=== PATIENT | male | born 1950 | race Caucasian/White ===

== ENCOUNTER 2016-08-28 12:20 | Emergency (ER) | payer MEDICARE, BC ==
[2016-08-28 13:39] VITALS: BP 138/53
--- NOTE | 2016-08-28 14:14 | UC ---
Palpitation/Dysrhythmia HP - HPI Summary HPI Summary: The patient comes in today for: 1. Sinus pressure: Onset: 4-5 days. Palliative/provocative: Sleep makes it better. Quality: Pressure Region: Frontal pressure and maxillary pressure Severity: 7/10 Time: Constant Associated symptoms: Rhinitis: Green. Upper tooth pain: None. Fever: No temperature taken. Cough: Occasionally. Green. Chest pain: None Palpitations: Present. Lightheadedness: present if he "tries too much." 2. Palpitations: Onset: He has had a-fib for 15 years. Palliative/provocative: Sinus infections. Quality: Palpitations. Region: Chest Severity: No pain. Time: Comes and goes. Associated symptoms: He is on Tikosyn and ablation, cardioversion x 35 times. * * - History of Current Complaint Chief Complaint: UCRespiratory Stated Complaint: SINUS,SORE THROAT,EAR PAIN,COUGH Time Seen by Provider: 08/28/16 14:08 Hx Obtained From: Patient - Allergy/Home Medications Allergies/Adverse Reactions: Allergies Allergy/AdvReac Type Severity Reaction Status Date / Time Clopidogrel [From Plavix] AdvReac Intermediate Hives Verified 08/28/16 13:39 Home Medications: Home Medications Metoprolol Tartrate TAB* [Lopressor TAB*] 75 mg PO DAILY 08/28/16 [History Confirmed 08/28/16] PMH/Surg Hx/FS Hx/Imm Hx Previously Healthy: No Endocrine History Of: Reports: Diabetes - x 20 years. Cardiovascular History Of: Reports: Cardiac Disorders - Afib, Hypertension, Congestive Heart Failure - He is on spironolactone--for CHF? He denies CHF per se, Atrial Fibrillation Denies: Pacemaker/ICD, Myocardial Infarction, Deep Vein Thrombosis, Bleeding Disorders Respiratory History Of: Reports: Asthma - When a child Denies: COPD GI/ History Of: Denies: Gastroesophageal Reflux, Ulcer, Gastrointestinal Bleed, Gall Bladder Disease, Kidney Stones, Diverticulitis, Renal Disease, Urosepsis Neurological History Of: Denies: TIA, CVA, Dementia, Seizures, Migraine Psychological History Of: Denies: Anxiety, Depression, Bipolar Disorder, Schizophrenia, Post Traumatic Stress Disorder Cancer History Of: Denies: Lung Cancer, Colorectal Cancer, Breast Cancer, Prostate Cancer, Cervical Cancer Other History Of: Anticoagulant Therapy Negative For: HIV, Hepatitis B, Hepatitis C - Surgical History Surgical History: Yes Surgery Procedure, Year, and Place: Tonisllectomy, 1973, [facility]. Benign tumor removal left chest, 1989, [facility] [place]. Cardiac stent, 2009, [facility] [place]. Cardiac ablation, 11/2011, [facility] - Family History Known Family History: Positive: Cardiac Disease, Hypertension - Social History Occupation: Employed Full-time Alcohol Use: None Substance Use Type: None Smoking Status (MU): Never Smoked Tobacco - Immunization History Most Recent Influenza Vaccination: fall 2013 Most Recent Tetanus Shot: unknown Most Recent Pneumonia Vaccination: 2011 Review of Systems Constitutional: Negative Skin: Negative Eyes: Negative ENT: Nasal Discharge Respiratory: Cough Cardiovascular: Negative Gastrointestinal: Negative Genitourinary: Negative All Other Systems Reviewed And Are Negative: Yes Physical Exam Triage Information Reviewed: Yes Appearance: Well-Appearing, No Pain Distress, Well-Nourished Vital Signs: Initial Vital Signs Temp 96.9 F 08/28/16 13:34 Pulse 98 08/28/16 13:34 Resp 16 08/28/16 13:34 BP 138/53 08/28/16 13:34 Pulse Ox 98 08/28/16 13:34 Patient's heart rate has been irregular with a range of 48 when I took his pulse when examining him to runs of SVT at about 167. Vital Signs Reviewed: Yes Eyes: Positive: Conjunctiva Clear. Negative: Discharge ENT: Positive: Hearing grossly normal. Negative: Pharyngeal erythema, Nasal congestion, Nasal drainage, TM bulging, TM dull, TM red, Tonsillar swelling, Tonsillar exudate Dental: Negative: Gross Decay/Caries @, Dental Fracture @ Neck: Positive: Supple, Nontender, No Lymphadenopathy. Negative: Nuchal Rigidity Respiratory: Positive: Lungs clear, No respiratory distress, No accessory muscle use. Negative: Crackles, Wheezing Cardiovascular: Positive: RRR, No Murmur Abdomen Description: Positive: Nontender, No Organomegaly, Soft. Negative: Distended, Guarding Musculoskeletal: Positive: Strength Intact, ROM Intact Neurological: Positive: Alert, Muscle Tone Normal Psychological: Positive: Age Appropriate Behavior, Consolable Skin: Negative: rashes, breakdown Palpitations Course/Dx - Course Course Of Treatment: The patient was told of my concern about his heart rate and how my formal recommendation is for him to go to the ER. However, he states that what is happening to him at this time is something he has gone through this before and once he has his sinus infections treated, he does well. I expresssed concern that his unstable rthym suggests to me he needs an urgent evaluation through the ER, but he declined and just wants antibiotics for his sinus infection. - Differential Dx/Diagnosis Provider Diagnoses: Sick sinus syndrome. Runs of SVT. Bradycardia. Sinusitis Discharge - Discharge Plan Condition: Stable Disposition: AGAINST MEDICAL ADVICE Patient Education Materials: Supraventricular Tachycardia (ED), Bradycardia (ED ) Referrals: Radha MOSCOSO,Vipul Pollard [Primary Care Provider] - As Soon As Possible (If you are not going to the ER at this time, please see your primary care provider or your convention services director as soon as you can. If you get worse, please reconsider going to the ER via amublance.)
== END 2016-08-28 14:41 | disposition left against medical advice (07) ==
LOC: UCCORT 12:20
DX: I49.5 Sick sinus syndrome (principal); I47.1 Supraventricular tachycardia; J32.9 Chronic sinusitis, unspecified; Z88.8 Allergy status to other drugs, medicaments and biological substances; I10 Essential (primary) hypertension; I48.91 Unspecified atrial fibrillation; Z79.01 Long term (current) use of anticoagulants
CPT/HCPCS: 93005; 99212; G0463

== ENCOUNTER 2016-09-24 13:49 | Emergency (ER) | payer MEDICARE, BC ==
--- NOTE | 2016-09-24 14:42 | UC ---
Respiratory Complaint HPI - HPI Summary HPI Summary: The patient comes in today for: 1. Sinus pressure: Onset: 2 days ago. Palliative/Provocative: Rest makes it better. Worse with bending over. Quality: Pressure. Region: Above the eyes, maxillary, and "behind the eyeballs." Severity: 2/10 Time: Constant. Associated symptoms: Fever: None known, but he "broke out in a sweat." Upper tooth pain: None. Previous treatment: None. Recent antibiotics: last Rx was three weeks ago. Cough: At night cough is present. He brings up with his cough a yellow mucous. Rhinitis: Present, yellowish. * - History of Current Complaint Chief Complaint: UCRespiratory Stated Complaint: SINUS,EAR PAIN Time Seen by Provider: 09/24/16 14:19 Hx Obtained From: Patient - Allergies/Home Medications Allergies/Adverse Reactions: Allergies Allergy/AdvReac Type Severity Reaction Status Date / Time Clopidogrel [From Plavix] AdvReac Intermediate Hives Verified 09/24/16 14:13 PMH/Surg Hx/FS Hx/Imm Hx Previously Healthy: No Endocrine History Of: Reports: Diabetes - x 20 years. Denies: Thyroid Disease Cardiovascular History Of: Reports: Cardiac Disorders - Afib, Hypertension, Congestive Heart Failure - He is on spironolactone--for CHF? He denies CHF per se, Atrial Fibrillation Denies: Pacemaker/ICD, Myocardial Infarction, Deep Vein Thrombosis, Bleeding Disorders Respiratory History Of: Reports: Asthma - When a child, Bronchitis Denies: COPD GI/ History Of: Denies: Gastroesophageal Reflux, Ulcer, Gastrointestinal Bleed, Gall Bladder Disease, Kidney Stones, Diverticulitis, Renal Disease, Urosepsis Neurological History Of: Denies: TIA, CVA, Dementia, Seizures, Migraine Psychological History Of: Denies: Anxiety, Depression, Bipolar Disorder, Schizophrenia, Post Traumatic Stress Disorder Cancer History Of: Denies: Lung Cancer, Colorectal Cancer, Breast Cancer, Prostate Cancer, Cervical Cancer Other History Of: Anticoagulant Therapy Negative For: HIV, Hepatitis B, Hepatitis C - Surgical History Surgical History: Yes Surgery Procedure, Year, and Place: Tonisllectomy, 1973, [facility]. Benign tumor removal left chest, 1989, [facility] [place]. Cardiac stent, 2009, [facility] [place]. Cardiac ablation, 11/2011, [facility] - Family History Known Family History: Positive: Cardiac Disease, Hypertension, Diabetes - Social History Occupation: Employed Full-time Alcohol Use: None Substance Use Type: None Smoking Status (MU): Never Smoked Tobacco - Immunization History Most Recent Influenza Vaccination: fall 2013 Most Recent Tetanus Shot: unknown Most Recent Pneumonia Vaccination: 2011 Review of Systems Constitutional: Negative Skin: Negative Eyes: Negative ENT: Nasal Discharge Respiratory: Cough Cardiovascular: Negative Gastrointestinal: Negative Genitourinary: Negative All Other Systems Reviewed And Are Negative: Yes Physical Exam Triage Information Reviewed: Yes Appearance: Well-Appearing, No Pain Distress, Well-Nourished Vital Signs: Initial Vital Signs Temp 95.5 F 09/24/16 14:10 Pulse 120 09/24/16 14:10 Resp 16 09/24/16 14:10 BP 140/81 09/24/16 14:10 Pulse Ox 97 09/24/16 14:10 Vital Signs Reviewed: Yes Eyes: Positive: Conjunctiva Clear. Negative: Discharge ENT: Positive: Hearing grossly normal, Other: - Tenderness present with pressure of the frontal and maxillary sinuses.. Negative: Pharyngeal erythema, Nasal congestion, Nasal drainage, TM bulging, TM dull, TM red, Tonsillar swelling, Tonsillar exudate Dental: Negative: Gross Decay/Caries @, Dental Fracture @ Neck: Positive: Supple, Nontender, No Lymphadenopathy. Negative: Nuchal Rigidity Respiratory: Positive: Chest non-tender, Lungs clear, No respiratory distress, No accessory muscle use. Negative: Crackles, Wheezing Cardiovascular: Positive: RRR, No Murmur Abdomen Description: Positive: Nontender, No Organomegaly, Soft. Negative: Distended, Guarding, Hernia @ Musculoskeletal: Positive: Strength Intact, ROM Intact Neurological: Positive: Alert, Muscle Tone Normal Psychological: Positive: Age Appropriate Behavior, Consolable Skin: Negative: rashes, breakdown UC Diagnostic Evaluation - Laboratory O2 Sat by Pulse Oximetry: 97 Respiratory Course/Dx - Differential Dx/Diagnosis Differential Diagnosis/HQI/PQRI: Bronchitis, Laryngitis, Sinusitis Provider Diagnoses: Sinusitis Discharge - Discharge Plan Condition: Stable Disposition: HOME Patient Education Materials: Sinusitis (ED) Referrals: Vipul Garcia DO [Primary Care Provider] - 1 Week (Please see your primary care provider in about a week to see how well you are doing. If you get worse, please be seen sooner.)
[2016-09-24 14:58] VITALS: BP 136/82
== END 2016-09-24 14:58 | disposition home or self-care (01) ==
LOC: UCCORT 13:49
DX: J32.9 Chronic sinusitis, unspecified (principal); Z88.8 Allergy status to other drugs, medicaments and biological substances; I48.91 Unspecified atrial fibrillation; Z79.01 Long term (current) use of anticoagulants; I11.0 Hypertensive heart disease with heart failure; I50.9 Heart failure, unspecified; Z95.5 Presence of coronary angioplasty implant and graft
CPT/HCPCS: 99212; G0463

== ENCOUNTER 2016-10-15 17:01 | Emergency (ER) | payer MEDICARE, BC ==
[2016-10-15 17:42] VITALS: BP 115/68
[2016-10-15] MEDS ORDERED: Metoprolol Tartrate TAB* 50 mg PO ONE (18:35)
--- NOTE | 2016-10-15 18:45 | UC ---
Respiratory Complaint HPI - History of Current Complaint Chief Complaint: UCGeneralIllness Stated Complaint: SINUS,BILATERAL EAR PAIN Time Seen by Provider: 10/15/16 18:33 Hx Obtained From: Patient Onset/Duration: Sudden Onset - 3, Lasting Days - 3, Worse Since - onset Timing: Constant Severity Initially: Mild Severity Currently: Moderate Character: Cough: Productive Aggravating Factors: Recumbent Position Associated Signs And Symptoms: Positive: Dyspnea - with exertion., URI, Nasal Congestion, Sinus Discomfort Related History: Seasonal Allergies - Risk Factors Pulmonary Embolism Risk Factors: Negative Cardiac Risk Factors: Negative Pseudomonas Risk Factors: Negative Tuberculosis Risk Factors: Negative - Allergies/Home Medications Allergies/Adverse Reactions: Allergies Allergy/AdvReac Type Severity Reaction Status Date / Time Clopidogrel [From Plavix] AdvReac Intermediate Hives Verified 10/15/16 17:43 Home Medications: Home Medications Empagliflozin [Jardiance] 10 mg PO BEDTIME 10/15/16 [History Confirmed 10/15/16] PMH/Surg Hx/FS Hx/Imm Hx Endocrine History Of: Reports: Diabetes - x 20 years. Denies: Thyroid Disease Cardiovascular History Of: Reports: Cardiac Disorders - Afib, Hypertension, Congestive Heart Failure - He is on spironolactone--for CHF? He denies CHF per se, Atrial Fibrillation Denies: Pacemaker/ICD, Myocardial Infarction, Deep Vein Thrombosis, Bleeding Disorders Respiratory History Of: Reports: Asthma - When a child, Bronchitis Denies: COPD GI/ History Of: Denies: Gastroesophageal Reflux, Ulcer, Gastrointestinal Bleed, Gall Bladder Disease, Kidney Stones, Diverticulitis, Renal Disease, Urosepsis Neurological History Of: Denies: TIA, CVA, Dementia, Seizures, Migraine Psychological History Of: Denies: Anxiety, Depression, Bipolar Disorder, Schizophrenia, Post Traumatic Stress Disorder Cancer History Of: Denies: Lung Cancer, Colorectal Cancer, Breast Cancer, Prostate Cancer, Cervical Cancer Other History Of: Anticoagulant Therapy Negative For: HIV, Hepatitis B, Hepatitis C - Surgical History Surgical History: Yes Surgery Procedure, Year, and Place: Tonisllectomy, 1973, [facility]. Benign tumor removal left chest, 1989, [facility] [place]. Cardiac stent, 2009, [facility] [place]. Cardiac ablation, 11/2011, [facility] - Family History Known Family History: Positive: Cardiac Disease, Hypertension, Diabetes - Social History Occupation: Employed Full-time Lives: With Family Alcohol Use: None Substance Use Type: None Smoking Status (MU): Never Smoked Tobacco Have You Smoked in the Last Year: No - Immunization History Most Recent Influenza Vaccination: fall 2013 Most Recent Tetanus Shot: unknown Most Recent Pneumonia Vaccination: 2011 Review of Systems Constitutional: Fever - sweats last night ENT: Sore Throat, Ear Ache, Nasal Discharge Respiratory: Cough Neurological: Headache All Other Systems Reviewed And Are Negative: Yes Physical Exam Triage Information Reviewed: Yes Appearance: Well-Appearing, No Pain Distress, Obese Vital Signs: Initial Vital Signs Temp 96.7 F 10/15/16 17:30 Pulse 160 10/15/16 17:30 Resp 16 10/15/16 17:30 BP 115/68 10/15/16 17:30 Pulse Ox 99 10/15/16 17:30 Vital Signs Reviewed: Yes Eyes: Positive: Conjunctiva Clear ENT: Positive: Pharyngeal erythema, Nasal congestion - with allergic changes, TMs normal Neck exam: Normal Respiratory: Positive: Lungs clear Cardiovascular: Positive: Tachycardia Musculoskeletal Exam: Normal Neurological Exam: Normal Psychological Exam: Normal Skin Exam: Normal UC Diagnostic Evaluation - Laboratory O2 Sat by Pulse Oximetry: 99 Re-Evaluation - Re-Evaluation First Eval Re-Evaluation Time: 19:30 Change: Unchanged - still with tachycardia, perfectly comfortable. Respiratory Course/Dx - Differential Dx/Diagnosis Differential Diagnosis/HQI/PQRI: Asthma, Lower Resp Infection, Sinusitis Provider Diagnoses: Allergic rhinitis. Acute sinusitis. Suprventricular tachycardia Discharge - Discharge Plan Condition: Stable Disposition: HOME Discharge Disposition Comment: Patient relates the tachycardia is common and goes away after sleeping Prescriptions: Amoxicillin (*) [Amoxicillin 875 MG (*)] 875 mg PO BID #20 tab Additional Instructions: Please go to the ER if the tachycardia has not broken by the morning. Please call your silk winding machine operator to see if your metoprolol should be twice a day. NEILMED SINUS RINSE: CHECK OUT AT [facility] Saline nasal wash helps with mucous, allergies and congestion. It can be used up to twice a day or only as needed. Use lukewarm tap water. It does not have to be sterilized or distilled water. Do 1/3 on each side and snort out of both nostrils. Repeat the process with 1/6 of the bottle on each side with snorting in between to finish the solution in the bottle
[2016-10-15] MEDS ORDERED: Metoprolol Tartrate TAB* 25 MG PO ONE (18:50)
[2016-10-15] MEDS ORDERED: Amoxicillin PO (*) 500 MG CAP PO ONE (19:41)
== END 2016-10-15 19:56 | disposition home or self-care (01) ==
LOC: UCCORT 17:01
DX: J30.9 Allergic rhinitis, unspecified (principal); J01.90 Acute sinusitis, unspecified; I47.1 Supraventricular tachycardia; E11.9 Type 2 diabetes mellitus without complications; Z79.84 Long term (current) use of oral hypoglycemic drugs; I48.91 Unspecified atrial fibrillation; Z79.01 Long term (current) use of anticoagulants; I50.9 Heart failure, unspecified; I10 Essential (primary) hypertension; Z95.5 Presence of coronary angioplasty implant and graft
CPT/HCPCS: 93005; 99212; A9270-GY; G0463

== ENCOUNTER 2016-12-03 13:40 | Emergency (ER) | payer MEDICARE, BC ==
--- NOTE | 2016-12-03 14:12 | UC ---
Throat Pain/Nasal Victorino HPI - HPI Summary HPI Summary: 66 year old male with history of cardiac ablation X2 most recently in 2016 per patient. Recently was seen by cards and increased the metoprolol for high BP abd tachycardia. He has in the past gotten sinus and URI and it causes his heart rate to go up. He has about 3-4 sinus infections per year and states he is not using his Netti Pot or nasal rinses lately. He has had increased sinus pressure with cough the past week. He states in the past if his sinus infection is not treated early it can lead to tachycardia and cardioversion which he states has happened more than 35 times. He denies CP or palpitations and states since his metoproilol has been increased his heart rate has been loower and he gets light headed when standing up too fast. - History of Current Complaint Chief Complaint: UCRespiratory Stated Complaint: SINUS Time Seen by Provider: 12/03/16 13:49 Hx Obtained From: Patient Onset/Duration: Gradual Onset Severity: Mild Associated Signs & Symptoms: Positive: Sinus Discomfort - Allergies/Home Medications Allergies/Adverse Reactions: Allergies Allergy/AdvReac Type Severity Reaction Status Date / Time Clopidogrel [From Plavix] AdvReac Intermediate Hives Verified 12/03/16 13:55 PMH/Surg Hx/FS Hx/Imm Hx Previously Healthy: Yes Endocrine History Of: Reports: Diabetes - x 20 years. Denies: Thyroid Disease Cardiovascular History Of: Reports: Cardiac Disorders - Afib, cardiac ablation x2, Hypertension, Congestive Heart Failure - He is on spironolactone--for CHF? He denies CHF per se, Atrial Fibrillation Denies: Pacemaker/ICD, Myocardial Infarction, Deep Vein Thrombosis, Bleeding Disorders Respiratory History Of: Reports: Asthma - When a child, Bronchitis Denies: COPD GI/ History Of: Denies: Gastroesophageal Reflux, Ulcer, Gastrointestinal Bleed, Gall Bladder Disease, Kidney Stones, Diverticulitis, Renal Disease, Urosepsis Neurological History Of: Denies: TIA, CVA, Dementia, Seizures, Migraine Psychological History Of: Denies: Anxiety, Depression, Bipolar Disorder, Schizophrenia, Post Traumatic Stress Disorder Cancer History Of: Denies: Lung Cancer, Colorectal Cancer, Breast Cancer, Prostate Cancer, Cervical Cancer Other History Of: Anticoagulant Therapy Negative For: HIV, Hepatitis B, Hepatitis C - Surgical History Surgical History: Yes Surgery Procedure, Year, and Place: Tonisllectomy, 1974, [facility]. Benign tumor removal left chest, 1989, [facility] [place] Cardiac stent, 2009, [facility] [place]. Cardiac ablation, 11/2011, [facility] - Family History Known Family History: Positive: Cardiac Disease, Hypertension, Diabetes - Social History Occupation: Employed Full-time - teacher Lives: With Family Alcohol Use: None Substance Use Type: None Smoking Status (MU): Never Smoked Tobacco Have You Smoked in the Last Year: No - Immunization History Most Recent Influenza Vaccination: fall 2013 Most Recent Tetanus Shot: unknown Most Recent Pneumonia Vaccination: 2011 Review of Systems Constitutional: Fatigue Skin: Negative Eyes: Negative ENT: Negative Respiratory: Negative Cardiovascular: Negative, Other - diaphoresis Gastrointestinal: Negative Genitourinary: Negative Motor: Negative Neurovascular: Negative Musculoskeletal: Negative Neurological: Negative Psychological: Negative All Other Systems Reviewed And Are Negative: Yes Physical Exam Triage Information Reviewed: Yes Appearance: Well-Appearing, Well-Nourished, Obese Vital Signs: Initial Vital Signs Pulse 45 12/03/16 13:43 Resp 16 12/03/16 13:43 BP 152/78 12/03/16 13:43 Pulse Ox 99 12/03/16 13:43 Vital Signs Reviewed: Yes Eye Exam: Normal ENT Exam: Normal Dental Exam: Normal Neck exam: Normal Neck: Positive: 1 Respiratory Exam: Normal Cardiovascular Exam: Normal Cardiovascular: Positive: Tachycardia Musculoskeletal Exam: Normal Neurological Exam: Normal Psychological Exam: Normal Skin Exam: Normal Skin: Positive: Other - diaphoresis Throat Pain/Nasal Course/Dx - Course Course Of Treatment: With the history of cardiac disease and he is symptomactic will advise ED for reversible causes / labs and furhter work up to ensure the patient does not deteroriate. He declined ambulance and is aware he could detoriate and could have arrythmia and cause cardiac collapse / - Differential Dx/Diagnosis Differential Diagnosis/HQI/PQRI: Sinusitis, URI Provider Diagnoses: Mobitz I and sinusitis - Physician Notification/Consults Discussed Patient Care With: Wilian BARNES at [facility] at 1428 Discharge - Discharge Plan Condition: Good Disposition: HOME Patient Education Materials: Heart Block (ED) Referrals: Vipul Garcia DO [Primary Care Provider] - (go directly to ed)
[2016-12-03 14:35] VITALS: BP 157/79
== END 2016-12-03 14:38 | disposition home or self-care (01) ==
LOC: UCCORT 13:40
DX: J32.9 Chronic sinusitis, unspecified (principal); I44.1 Atrioventricular block, second degree; J45.909 Unspecified asthma, uncomplicated; E11.9 Type 2 diabetes mellitus without complications; I48.91 Unspecified atrial fibrillation; Z79.01 Long term (current) use of anticoagulants; I10 Essential (primary) hypertension; Z95.5 Presence of coronary angioplasty implant and graft; Z88.8 Allergy status to other drugs, medicaments and biological substances
CPT/HCPCS: 93005; 99212; G0463

== ENCOUNTER 2016-12-03 15:31 | Observation (INO) | payer MEDICARE, BC ==
[2016-12-03] MEDS ORDERED: Aspirin Low Dose CHEW TAB* 81 MG PO ONE (16:58)
[2016-12-03 17:09] LABS: Hematocrit 44 % (42-52); Hemoglobin 13.7 g/dl (14.0-18.0); Mean Corpuscular HGB Conc 31 g/dl (31-36); Mean Corpuscular Hemoglobin 23 pg (27-31); Mean Corpuscular Volume 75 fL (80-94); Mean Platelet Volume 9 um3 (7.4-10.4); Red Blood Count 5.94 10^6/ul (4.0-5.4); Red Cell Distribution Width 18 % (10.5-15); White Blood Count 14.5 10^3/ul (3.5-10.8)
[2016-12-03 17:11] LABS: Comments Flag Yes
[2016-12-03 17:12] LABS: Add Diff/Slide Review? Slide Review Added
--- NOTE | 2016-12-03 17:16 | RAD ---
INDICATION: Palpitations. COMPARISON: Comparison is made with prior chest x-ray study from August 04, 2013. TECHNIQUE: A portable view of the chest was obtained. FINDINGS: Cardiac and mediastinal contours appear to be within normal limits. The lungs are clear. No pleural effusion is seen. IMPRESSION: NO EVIDENCE FOR ACUTE DISEASE.
[2016-12-03 17:26] LABS: BUN/Creatinine Ratio 25.9 (8-20); Calcium 8.9 mg/dL (8.6-10.3); EGFR African American 80.5 (>60); EGFR Non-African American 62.6 (>60); Globulin 2.9 g/dL (2-4); Total Bilirubin 0.4 mg/dL (0.2-1.0); Total Protein 6.9 g/dL (6.4-8.9)
[2016-12-03 17:27] LABS: Troponin I 0.01 ng/mL (<0.04)
[2016-12-03] MEDS ORDERED: Amoxicillin/Clavulanate TAB* 875 MG PO ONE (17:33)
[2016-12-03] MEDS ORDERED: NS 0.9% 1000 ML* 1,000 ML IV ONE (17:33)
[2016-12-03] MEDS ORDERED: Diltiazem IV* 5 MG/ML 5 ML VIAL (for loading dose/IV Push) (25 MG) IV SLOW PU ONE (17:33)
--- NOTE | 2016-12-03 19:21 | ADMNOTE ---
Subjective Date of Service: 12/03/16 Interval History: ADMISSION HISTORY AND PHYSICAL EXAM: Allergies Allergy/AdvReac Type Severity Reaction Status Date / Time Clopidogrel [From Plavix] AdvReac Intermediate Hives Verified 12/03/16 13:55 Home Medications Medication Instructions Recorded Confirmed Type Indapamide 1 tab PO BID 11/30/12 12/03/16 History Multiple Vitamins W/ Minerals 1 tab PO DAILY #0 11/30/12 12/03/16 History [Multivitamin Adults] Warfarin [Coumadin] 5 mg PO DAILY 11/30/12 12/03/16 History Glyburide 10 mg PO BID PRN 10/11/13 12/03/16 History Metformin HCl 500 - 1,000 tab PO BID 10/14/13 12/03/16 History Magnesium Oxide (mg Supplement 1 tab PO BID 09/10/14 12/03/16 History [Magnesium Oxide 400] Potassium Chloride Microencaps 1 tab PO DAILY 06/02/15 12/03/16 History [Klor-Con M20] Cyanocobalamin [Vitamin B-12] 5,000 mcg PO DAILY 06/24/15 12/03/16 History Sildenafil Citrate [Viagra] 0.5 - 1 tab PO DAILY PRN 06/24/15 12/03/16 History Aspirin [Aspirin Adult Low Dose 81 81 mg PO DAILY 10/14/15 12/03/16 History MG] Losartan Potassium 75 mg PO DAILY 10/14/15 12/03/16 History Spironolactone [Aldactone 25 MG-] 25 mg PO DAILY 10/14/15 12/03/16 History Dofetilide CAP* [Tikosyn CAP*] 250 mcg PO BID #60 cap 10/16/15 12/03/16 Rx Metoprolol Tartrate TAB* 75 mg PO DAILY 08/28/16 12/03/16 History [Lopressor TAB*] Amoxicillin (*) [Amoxicillin 875 875 mg PO BID #20 tab 10/15/16 12/03/16 Rx MG (*)] Empagliflozin [Jardiance] 10 mg PO BEDTIME 10/15/16 12/03/16 History Family History: Findings - DM, heart disease Social History: Findings - Lives with his who is his SDM. No alcohol or tobacco use. Past Medical History: Findings - CAD s/p stents. Ablation X 2. Gastric sleeve surgery 2013. DM, HTN Review of Systems - Measurements Intake and Output: Intake and Output Last 24 Hours 12/01/16 12/02/16 12/03/16 12/04/16 06:59 06:59 06:59 06:59 Weight 205 lb Objective Active Medications: Amoxicillin/Clavulanate Potassium (Augmentin Tab*) 875 mg PO BID [facility] Aspirin (Aspirin Ec Low Dose*) 81 mg PO DAILY [facility] Dofetilide (Tikosyn Cap*) 250 mcg PO BID [facility] Glyburide (Diabeta Tab*) 10 mg PO 0800,1500 [facility] Indapamide (Lozol Tab*) 2.5 mg PO BID [facility] Metformin HCl (Glucophage*) 500 mg PO BID [facility] Metoprolol Tartrate (Lopressor Tab*) 75 mg PO DAILY [facility] Non-Formulary Medication (Losartan Potassium [Losartan Potassium]) 75 mg PO DAILY [facility] Potassium Chloride (Klor Con Er Tab*) 20 meq PO DAILY [facility] Spironolactone (Aldactone Tab*) 25 mg PO DAILY [facility] Warfarin Sodium (Coumadin Tab(*)) 5 mg PO DAILY [facility] PRN Reason: Protocol Vital Signs 12/03/16 12/03/16 12/03/16 15:34 16:35 16:40 Temperature 98.5 F Pulse Rate 90 145 50 Respiratory 18 20 Rate Blood Pressure 148/72 (mmHg) O2 Sat by Pulse 98 98 Oximetry 12/03/16 12/03/16 12/03/16 16:51 17:00 17:30 Temperature 98.1 F Pulse Rate 37 43 42 Respiratory 20 Rate Blood Pressure 126/59 122/59 118/61 (mmHg) O2 Sat by Pulse 98 97 98 Oximetry 12/03/16 12/03/16 12/03/16 17:47 17:51 18:00 Temperature Pulse Rate 45 59 92 Respiratory Rate Blood Pressure 116/75 99/59 88/58 (mmHg) O2 Sat by Pulse 96 95 96 Oximetry 12/03/16 12/03/16 18:07 18:30 Temperature Pulse Rate 90 90 Respiratory Rate Blood Pressure 102/71 101/66 (mmHg) O2 Sat by Pulse 97 97 Oximetry Oxygen Devices in Use Now: Nasal Cannula Appearance: Alert, supine on ED stretcher. In good spirits. Looks comfortable. Eyes: No Scleral Icterus Ears/Nose/Mouth/Throat: Clear Oropharnyx, Mucous Membranes Moist Neck: NL Appearance and Movements; NL JVP, No Thyroid Enlargement, Masses Respiratory: Symmetrical Chest Expansion and Respiratory Effort, Clear to Auscultation, Clear to Percussion Cardiovascular: NL Sounds; No Murmurs; No JVD, RRR, No Edema, - Abdominal: NL Sounds; No Tenderness; No Distention, No Hepatosplenomegaly, - Extremities: No Edema, No Clubbing, Cyanosis, - Skin: No Rash or Ulcers, No Nodules or Sclerosis, - Neurological: Alert and Oriented x 3, NL Sensation Result Diagrams: 12/03/16 16:50 12/03/16 16:50 Assess/Plan/Problems-Billing Assessment: - Patient Problems (1) Paroxysmal atrial fibrillation Current Visit: No Status: Acute Priority: High Onset Date: 10/14/15 Code (s): I48.0 - PAROXYSMAL ATRIAL FIBRILLATION SNOMED Code(s): 288116917 Comment: Currently in NSR. Continue usual meds. Hopefully treatment of his sinusitis will reduce the likliehood of further episodes of PAF, as it seems to have done in the past. COntinue dofetilide (2) Sinusitis Current Visit: Yes Status: Acute Code(s): J32.9 - CHRONIC SINUSITIS, UNSPECIFIED SNOMED Code(s): 47428717 Comment: Continue amox/clav, plan 2 weeks tx. Pt has ENT appt. (3) CAD (coronary artery disease) Current Visit: Yes Status: Acute Code(s): I25.10 - ATHSCL HEART DISEASE OF [place] CORONARY ARTERY W/O ANG PCTRS SNOMED Code(s): 90732679 Comment: Continue ASA, BB. (4) HTN (hypertension) Current Visit: Yes Status: Acute Code(s): I10 - ESSENTIAL (PRIMARY) HYPERTENSION SNOMED Code(s): 31999835 Comment: Continue indapamide, losartan, spironolactone, KCL. (5) Diabetes Current Visit: Yes Status: Acute Code(s): E11.9 - TYPE 2 DIABETES MELLITUS WITHOUT COMPLICATIONS SNOMED Code(s): 38479237 Comment: Continue oral meds. Lispro by SS. (6) Morbid obesity Current Visit: Yes Status: Acute Code(s): E66.01 - MORBID (SEVERE) OBESITY DUE TO EXCESS CALORIES SNOMED Code(s): 222760483 Comment: BMI 42.4.
[2016-12-03] MEDS: Indapamide TAB* 2.5 MG PO SCH (20:48)
[2016-12-03] MEDS: Amoxicillin/Clavulanate TAB* 875 MG PO SCH (20:49)
[2016-12-03] MEDS: metFORMIN* 500 MG TAB PO SCH (20:49)
[2016-12-03] MEDS: Dofetilide CAP* 250 MCG PO SCH (20:50)
[2016-12-04] MEDS ORDERED: Diltiazem DRIP* 100 MG/100 ML ADDV.BAG IVPB SCH (01:00)
--- NOTE | 2016-12-04 01:59 | PN ---
Progress Note - Progress Note Note: Called to see patient because in and out of NSVT all night long. Indded, EKG shows it. Discussed with Dr. Nguyen. Cannot do amiodarone drip while on Tikosyn. Will transfer to unit and place on Esmolol drip. Cardiology to see in AM.
[2016-12-04] MEDS ORDERED: Esmolol DRIP* 10 MG/ML 250 ML BAG IVPB SCH (02:00)
[2016-12-04] MEDS ORDERED: glyBURIDE TAB* 5 MG PO SCH (08:00)
[2016-12-04] MEDS ORDERED: Dextrose 50% Syringe 50 ML* 25 GM/50 ML SYRINGE IV PUSH PRN (08:32)
--- NOTE | 2016-12-04 08:35 | PN ---
Progress Note - Progress Note Note: Time spent on patient care 45 minutes.
[2016-12-04] MEDS: Dofetilide CAP* 250 MCG PO SCH (08:39)
[2016-12-04] MEDS: metFORMIN* 500 MG TAB PO SCH (08:39)
[2016-12-04] MEDS: Indapamide TAB* 2.5 MG PO SCH (08:39)
[2016-12-04] MEDS: Amoxicillin/Clavulanate TAB* 875 MG PO SCH (08:43)
[2016-12-04] MEDS ORDERED: Potassium Chlor TAB* 20 MEQ TAB.ER PO SCH (09:00)
[2016-12-04] MEDS ORDERED: Spironolactone TAB* 25 MG PO SCH (09:00)
[2016-12-04] MEDS ORDERED: Metoprolol Tartrate TAB* 25 MG PO SCH (09:00)
[2016-12-04] MEDS ORDERED: Warfarin TAB(*) 5 MG PO SCH (09:00)
[2016-12-04] MEDS ORDERED: Aspirin EC Low Dose* 81 MG TAB.EC PO SCH (09:00)
[2016-12-04] MEDS ORDERED: Losartan TAB* 25 MG PO SCH (09:00)
[2016-12-04] MEDS ORDERED: Metoprolol Tartrate TAB* 50 mg PO SCH ×2 (09:00→10:43)
[2016-12-04] MEDS ORDERED: Insulin LISPRO* 1 UNITS UNIT SUBCUT SCH (11:30)
[2016-12-04 12:14] VITALS: BP 111/62
--- NOTE | 2016-12-04 14:27 | ED ---
Kenia Gallagher SooYoung, scribed for Moustapha You MD on 12/03/16 at 1705 . Palpitations / Dysrhythmia - HPI Summary HPI Summary: A 66 y/o M referred from [facility] presents to ED with c/o palpitations onset [employer]. Pt originally went to Urgent Care for his sinus infection. At [facility] his HR was 42 when lying down, but EKG read 138 bpm. Currently, in ED, pt is tachy at 134 bpm. Secondary complaint of sinus infection with rhinorrhea with yellow discharge, diaphoresis. Denies CP, fever. PMHx: stent, ablations. Pt sees Dr. Connelly. He is on Coumadin. 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 Denies: Hx Thyroid Disease Cardiovascular History: Reports: Hx Congestive Heart Failure - He is on spironolactone--for CHF? He denies CHF per se, Hx Coronary Artery Disease, Hx Hypercholesterolemia, Hx Hypertension, Other Cardiovascular Problems/Disorders - non-ischemic cardiomyopathy, left bundle branch block Denies: Hx Deep Vein Thrombosis, Hx Myocardial Infarction, Hx Pacemaker/ICD Respiratory History: Reports: Hx Asthma - When a child, Other Respiratory Problems/Disorders - Hx of pneumonia Denies: Hx Chronic Obstructive Pulmonary Disease (COPD), Hx Lung Cancer GI History: Denies: Hx Gall Bladder Disease, Hx Gastrointestinal Bleed, Hx Ulcer, Hx Urosepsis History: Denies: Hx Kidney Stones, Hx Renal Disease Sensory History: Reports: Hx Contacts or Glasses Denies: Hx Hearing Aid Opthamlomology History: Reports: Hx Contacts or Glasses Neurological History: Denies: Hx Dementia, Hx Migraine, Hx Seizures, Hx Transient Ischemic Attacks (TIA) Psychiatric History: Denies: Hx Anxiety, Hx Attention Deficit Hyperactivity Disorder, Hx Eating Disorder, Hx Depression, Hx Panic Disorder, Hx Post Traumatic Stress Disorder, Hx Inpatient Treatment, Hx Community Mental Health Tx, Hx Schizophrenia, Hx Bipolar Disorder, Hx Suicide Attempt, Hx of Violent Episodes Against Others, Hx Substance Abuse, Other Psychiatric Issues/Disorders - Surgical History Surgery Procedure, Year, and Place: Tonisllectomy, 1973, [facility]. Benign tumor removal left chest, 1989, [facility]. Cardiac stent, 2009, [facility]. Cardiac ablation, 11/2011, [facility] Anesthesia Reactions: No Infectious Disease History: No Infectious Disease History: Denies: Hx Clostridium Difficile, Hx Hepatitis, Hx Human Immunodeficiency Virus (HIV), Hx of Known/Suspected MRSA, Hx Shingles, Hx Tuberculosis, Hx Known/ Suspected VRE, Hx Known/Suspected VRSA, History Other Infectious Disease, Traveled Outside the [place] in Last 30 Days - Family History Known Family History: Positive: Cardiac Disease, Hypertension, Diabetes - Social History Occupation: Employed Full-time Lives: With Family Alcohol Use: None Hx Substance Use: No Substance Use Type: Reports: None Hx Tobacco Use: No Smoking Status (MU): Never Smoked Tobacco Have You Smoked in the Last Year: No Review of Systems Positive: Skin Diaphoresis. Negative: Fever, Chills Negative: Erythema Positive: Nasal Discharge - rhinorrhea. Negative: Sore Throat Positive: Palpitations. Negative: Chest Pain Negative: Shortness Of Breath, Cough Negative: Abdominal Pain, Vomiting, Nausea Negative: dysuria, hematuria Negative: Myalgia, Edema Negative: Rash Neurological: Other - neg: dizziness All Other Systems Reviewed And Are Negative: Yes Physical Exam - Summary Physical Exam Summary: Constitutional: Well-developed, Well-nourished, Alert. (-) Distressed Skin: Warm, Dry HENT: Normocephalic; Atraumatic; FRONTAL AND MAXILLARY SINUS TENDERNESS TO PALPATION AND PERCUSSION. Eyes: Conjunctiva normal Neck: Musculoskeletal ROM normal neck. (-) JVD, (-) Stridor, (-) Tracheal deviation Cardio: Rhythm regular, Heart sounds normal; Intact distal pulses; The pedal pulses are 2+ and symmetric. Radial pulses are 2+ and symmetric. (-) Murmur Pulmonary/Chest wall: Effort normal. (-) Respiratory distress, (-) Wheezes, (-) Rales Abd: Soft, (-) Tenderness, (-) Distension, (-) Guarding, (-) Rebound Musculoskeletal: (-) Edema Lymph: (-) Cervical adenopathy Neuro: Alert, Oriented x3 Psych: Mood and affect Normal Triage Information Reviewed: Yes Vital Signs On Initial Exam: Initial Vitals Temp Pulse Resp BP Pulse Ox 98.5 F 90 18 148/72 98 12/03/16 15:34 12/03/16 15:34 12/03/16 15:34 12/03/16 15:34 12/03/16 15:34 Vital Signs Reviewed: Yes - [place] Coma Scale Coma Scale Total: 15 Diagnostics - Vital Signs Vital Signs Temp Pulse Resp BP Pulse Ox 12/03/16 16:51 98.1 F 139 20 126/59 97 12/03/16 16:40 50 98 12/03/16 16:35 145 20 12/03/16 15:34 98.5 F 90 18 148/72 98 - Laboratory Lab Results: Lab Results 12/03/16 12/03/16 12/03/16 Range/Units 16:50 16:50 16:50 WBC 14.5 H (3.5-10.8) 10^3/ul RBC 5.94 H (4.0-5.4) 10^6/ul Hgb 13.7 L (14.0-18.0) g/dl Hct 44 (42-52) % MCV 75 L (80-94) fL MCH 23 L (27-31) pg MCHC 31 (31-36) g/dl RDW 18 H (10.5-15) % Plt Count 278 (150-450) 10^3/ul MPV 9 (7.4-10.4) um3 Neut % (Auto) 68.7 (38-83) % Lymph % (Auto) 18.2 L (25-47) % [place] % (Auto) 9.1 H (1-9) % Eos % (Auto) 2.8 (0-6) % Baso % (Auto) 1.2 (0-2) % Absolute Neuts (auto) 9.9 H (1.5-7.7) 10^3/ul Absolute Lymphs (auto) 2.6 (1.0-4.8) 10^3/ul Absolute Monos (auto) 1.3 H (0-0.8) 10^3/ul Absolute Eos (auto) 0.4 (0-0.6) 10^3/ul Absolute Basos (auto) 0.2 (0-0.2) 10^3/ul Absolute Nucleated RBC 0.02 10^3/ul Nucleated RBC % 0.1 Sodium 130 L (133-145) mmol/L Potassium 4.0 (3.5-5.0) mmol/L Chloride 97 L (101-111) mmol/L Carbon Dioxide 26 (22-32) mmol/L Anion Gap 7 (2-11) mmol/L BUN 30 H (6-24) mg/dL Creatinine 1.16 (0.67-1.17) mg/dL Est GFR ( Amer) 80.5 (>60) Est GFR (Non-Af Amer) 62.6 (>60) BUN/Creatinine Ratio 25.9 H (8-20) Glucose 197 H (70-100) mg/dL Lactic Acid 2.3 H* (0.5-2.0) mmol/L Calcium 8.9 (8.6-10.3) mg/dL Total Bilirubin 0.40 (0.2-1.0) mg/dL AST 17 (13-39) U/L ALT 26 (7-52) U/L Alkaline Phosphatase 88 (34-104) U/L Troponin I 0.01 (<0.04) ng/mL Total Protein 6.9 (6.4-8.9) g/dL Albumin 4.0 (3.2-5.2) g/dL Globulin 2.9 (2-4) g/dL Albumin/Globulin Ratio 1.4 (1-3) Result Diagrams: 12/03/16 16:50 12/03/16 16:50 Lab Statement: Any lab studies that have been ordered have been reviewed, and results considered in the medical decision making process. - Radiology CXR Xray Interpretation: No Acute Changes - IMPRESSION: No evidence for acute disease. Radiology Interpretation Completed By: Radiologist - EKG 1 Cardiac Rate: Tachycardia - 122 bpm EKG Rhythm: Atrial Fibrillation - with RVR EKG Interpretation: no STEMI 2 Cardiac Rate: NL - 90 bpm EKG Rhythm: Sinus Rhythm EKG Interpretation: no STEMI Re-Evaluation - Re-Evaluation 1 Re-Evaluation Time: 18:09 Change: Improved Comment: Pt responded well to meds given. 2 Re-Evaluation Time: 18:30 Change: Improved Comment: Pt responding well to diltiazem. Heart rate is 90 bpm, still in afib. Course/Dx - Course Course Of Treatment: Pt is a 66 y/o M presents with palpitations onset [employer]. HR in ED is 134 bpm. Pt originally went to [facility] for sinus infection. Sx: rhinorrhea with yellow discharge, diaphoresis. Denies CP, fever. Pt given fluids, aspirin , augmentin and diltiazem in ED. Neg trop. CXR is negative. EKG shows Afib with RVR, 122 bpm, no STEMI. Spoke with hospitalist, will admit. - Diagnoses Provider Diagnoses: Atrial fibrillation with RVR, Sinusitis, Dehydration - Physician Notifications Discussed Care Of Patient With: Dr. Marquez, hospitalist Time Discussed With Above Provider: 18:30 Instructed by Provider To: Admit As Inpatient - Critical Care Time Critical Care Time: 30-74 min - 35 mins Discharge - Discharge Plan Condition: Improved Disposition: ADMITTED TO [facility] documentation as recorded by the Kenia borjas SooYoung accurately reflects the service I personally performed and the decisions made by me, Moustapha You MD.
--- NOTE | 2016-12-04 16:54 | CONS ---
CARDIOLOGY CONSULTATION: DATE OF CONSULT: 12/04/16 INDICATION FOR CONSULTATION: Atrial fibrillation. HISTORY OF PRESENT ILLNESS: The patient is a 66-year-old gentleman with a history of paroxysmal atrial fibrillation who came to the emergency room because of palpitations. The patient has had multiple interventions for his atrial fibrillation. He has had ablation procedures. He is on Tikosyn therapy. The patient has noticed stuffiness in his head for the last couple of days. He thought he had the early signs of a sinus infection. In the past, the patient's atrial fibrillation has always been more difficult to control when he has had infections. The patient went to the emergency room here because of palpitations and a sinus infection, he was found to be in atrial fibrillation with rapid ventricular response and he was admitted to the hospital. The patient was started on Augmentin for his sinus infection. Overnight, the patient was having paroxysms of atrial fibrillation with heart rate up to 190 beats per minute. He was transferred to the ICU. He was started on an esmolol drip, which converted him to normal sinus rhythm and this morning, the patient is feeling well. He has had no episodes of atrial fibrillation. His esmolol drip has been off for a couple of hours without any recurrence. PAST MEDICAL HISTORY: Includes paroxysmal atrial fibrillation, morbid obesity, diabetes, hypertension, hyperlipidemia, asthma. PAST SURGICAL HISTORY: Cardiac ablation for atrial fibrillation, tonsillectomy. CURRENT MEDICATIONS: 1. Losartan 75 mg a day. 2. Indapamide 2.5 mg a day. 3. Metformin 500 mg b.i.d. 4. Coumadin as directed. 5. Aspirin 81 mg a day. 6. Multivitamin a day. 7. Spironolactone 25 mg a day. 8. Potassium tablets 20 mEq daily. 9. Tikosyn 250 mcg b.i.d. 10. Lantus insulin as directed. 11. Metoprolol 75 mg a day. ALLERGIES: He is intolerant of PLAVIX. FAMILY HISTORY: Father had a history of hypertension, at 86 of pneumonia. Mother at 81 of coronary artery disease, history of coronary artery bypass surgery. SOCIAL HISTORY: He is . He is currently working. He denies tobacco or alcohol use. He does not get regular exercise. PHYSICAL EXAM: Height is 6 feet, weight 312 pounds, blood pressure 112/61, heart rate is 64, respiratory rate is 19, oxygen saturation 96% on room air, temperature 97 degrees. Sclerae anicteric. Oropharynx is pink without erythema. Carotids are 2+ without bruits. JVD is normal. Thyroid is normal. Cardiac Exam: S1 and S2 without any murmurs, rubs, or gallops. Lungs are clear to auscultation. Extremities show no edema. The patient is awake, alert, and oriented. He moves all 4 extremities equally. DIAGNOSTIC STUDIES/LAB DATA: His white count is minimally elevated at 14.5. Hemoglobin 13, hematocrit 44, platelet count 278. Chemistries within normal limits. Sodium was 130, BUN 30, creatinine 1.1. Troponin levels are negative x3. IMPRESSION: This is a 66-year-old gentleman with a history of paroxysmal atrial fibrillation, history of coronary artery disease who is admitted to the hospital because of palpitations and a sinus infection. The patient in the past has had increase in his atrial fibrillation when he has had infections. This is a fairly typical pattern for him. The patient was started in the hospital on antibiotics. He had a significant increase in his arrhythmias. The patient was started on esmolol drip, which converted him back to normal sinus rhythm. He has been off his esmolol drip for a couple of hours and he has been able to maintain normal sinus rhythm. RECOMMENDATIONS: It is my recommendation, the patient can be discharged from the hospital. I think overall his cardiac status is stable. I think his episode of atrial fibrillation was due to his sinus infection. The patient will follow up with Dr. Connelly as scheduled. CC: Dr. Garcia at [facility]; Dr. Naz Connelly * [id number]/[facility] #: [id number] [facility]
--- NOTE | 2016-12-04 23:56 | DS ---
CC: Dr. Garcia DISCHARGE SUMMARY: DATE OF ADMISSION: DATE OF DISCHARGE: 12/04/16 HOSPITAL COURSE: This 66-year-old man presented with palpitations. He had been having trouble with frontal sinusitis for sometime. He has a long history of many episodes of sinusitis, treated with antibiotics. He noted pain and tenderness above his eyes at this time. He had some cough with yell owish sputum, probably postnasal drip. He has had many episodes of atrial fibrillations as well and he says very often the sinusitis precipitates his atrial fibrillation. He has had 2 cardiac ablati ons. He has had cardioversions many times. It has now been over a year since his last cardioversio n. He was maintained on warfarin. The patient was admitted to a monitored unit. He presented with atrial fibrillation in the emergenc y room. He was given one dose of intravenous diltiazem. He converted to normal sinus rhythm. Abou t 1 in the morning after being admitted, he developed SVT, the rate of over 150. He was given an es molol infusion. After an hour or so, he converted to normal sinus rhythm again. He never had loss of consciousness, lightheadedness, chest pain, or shortness of breath. Mainly, the feeling of palpi tations. Dr. Nguyen saw the patient in consultation. He agreed that the fong would be treating the sinusitis. He did not recommend any change in his medications. FINAL DIAGNOSES: 1. Paroxysmal atrial fibrillation. 2. Frontal sinusitis. 3. Coronary artery disease. 4. Hypertension. 5. Diabetes. 6. Morbid obesity. DISCHARGE INSTRUCTIONS: The patient has a referral to [facility]. He will be followed up by Dr Moreno Garcia as well. We skipped one dose of his warfarin in the hospital as his INR was 3.35 on 12/03/16 and he is being treated with an antibiotic. He was instructed to reduce his warfarin to 5 mg daily and not to take 7.5 mg twice a week. He will have an INR in 2 days after discharge. DISCHARGE MEDICATIONS: 1. Amoxicillin clavulanate 875 mg b.i.d. for 14 more days. 2. Metoprolol tartrate 50 mg b.i.d. 3. Multivitamin with minerals daily. 4. Lispro insulin as prescribed. 5. Indapamide 1 tablet b.i.d. 6. Warfarin 5 mg daily. 7. Glyburide 10 mg b.i.d. 8. Metformin as prescribed. 9. Magnesium oxide 1 tablet b.i.d. 10. Potassium chloride 1 tablet daily. 11. Vitamin B12 of 5000 mcg daily. 12. Sildenafil as prescribed. 13. Spironolactone 25 mg daily. 14. Losartan 75 mg daily. 15. Aspirin 81 mg daily. 16. Dofetilide 250 mcg daily. 17. Jardiance 10 mg at bedtime p.o. [id number]/[facility] #: [id number]
== END 2016-12-04 12:10 | disposition home or self-care (01) ==
LOC: ED 15:31 → MEDTELE 18:45 → ICU 12-04 02:02
PROVIDERS: ADMIT Internal Medicine; ATTEND Internal Medicine
DX: I48.0 Paroxysmal atrial fibrillation (principal); J01.10 Acute frontal sinusitis, unspecified; I25.10 Atherosclerotic heart disease of native coronary artery without angina pectoris; I11.0 Hypertensive heart disease with heart failure; I50.9 Heart failure, unspecified; E11.9 Type 2 diabetes mellitus without complications; E66.01 Morbid (severe) obesity due to excess calories; Z79.01 Long term (current) use of anticoagulants; Z79.4 Long term (current) use of insulin; Z88.8 Allergy status to other drugs, medicaments and biological substances
CPT/HCPCS: 36415; 71010; 80053; 83605; 83735; 84484; 85025; 85610; 85730; 87641; 93005; 96361; 96374; 96375; 96376; 99284; A9270-GY; G0378

== ENCOUNTER 2018-01-21 17:11 | Emergency (ER) | payer MEDICARE, BC ==
--- NOTE | 2018-01-21 17:34 | UC ---
Throat Pain/Nasal Victorino HPI - HPI Summary HPI Summary: 67 y/o male presents to the urgent care c/o sinus congestion, sinus pain and B/ L ear plugged since 01/17/2018. Pt reports sinus pain is mild 2/10 and + PND yellowish. He states he has PMHX of A-fib which is triggered by any infection, specially sinusitis. He states last time he was seen here he came with worse sinus infection and referred to the ER due to his A-fib. He went to the ER and was admitted for 1 day, then D/C home w/ ABx treatment for sinusitis and his A-fib resolved w/o any cardioversion. However if he doesn't get ABx sooner then it can lead to tachycardia , A-fib and sharon't get controlled. He has Hx of 35 cardioversions and Cardiac ablation 2X. Pt states he is sweaty since it is very hot outside. He lives in [place] and he is managed there by [employer] DR Zheng. However he has seen [employer] DR Nguyen or DR Karimi here in [place] every year when he comes for the summer. He takes Tykosyn PO for his A- fib and Coumadin PO. He denies fever, SANCHEZ, palpitations, SOB, chest pain, abdominal pain, N/V/D, dizziness. Pt requests ABx for 2 weeks, otherwise symptoms will not resolved completely. - History of Current Complaint Chief Complaint: UCRespiratory Stated Complaint: SINUS & EAR PAIN Time Seen by Provider: 01/21/18 17:32 Hx Obtained From: Patient Onset/Duration: Gradual Onset, Lasting Days - 5 days, Still Present, Worse Since - today Severity: Mild Pain Intensity: 2 - sinus pain Pain Scale Used: 0-10 Numeric Cough: None Associated Signs & Symptoms: Positive: Sinus Discomfort, Nasal Discharge. Negative: Fever Related History: Seasonal Allergies, Other (Noted In Comments) - recurrent sinusitis - Epiglottits Risk Factors Epiglottis Risk Factors: Negative - Allergies/Home Medications Allergies/Adverse Reactions: Allergies Allergy/AdvReac Type Severity Reaction Status Date / Time clopidogrel [From Plavix] Allergy Hives Verified 01/21/18 17:27 PMH/Surg Hx/FS Hx/Imm Hx Previously Healthy: Yes Endocrine History: Diabetes Cardiovascular History: Hypertension, Atrial Fibrillation Other Cardiovascular History: SVT Other History Of: Anticoagulant Therapy Negative For: HIV, Hepatitis B, Hepatitis C - Surgical History Surgical History: Yes Surgery Procedure, Year, and Place: Tonisllectomy, 1973, [facility]. Benign tumor removal left chest, [place], [facility] [place]. Cardiac stent, 2009, [facility] [place]. Cardiac ablation, 11/2011, [facility] - Family History Known Family History: Positive: Cardiac Disease, Hypertension, Diabetes - Social History Occupation: Retired Lives: With Family Alcohol Use: None Substance Use Type: None Smoking Status (MU): Never Smoked Tobacco Have You Smoked in the Last Year: No - Immunization History Most Recent Influenza Vaccination: fall 2013 Most Recent Tetanus Shot: unknown Most Recent Pneumonia Vaccination: 2011 Review of Systems Constitutional: Negative Skin: Negative Eyes: Negative ENT: Nasal Discharge - yellowish, Sinus Congestion, Sinus Pain/Tenderness Respiratory: Negative Cardiovascular: Negative Gastrointestinal: Negative Genitourinary: Negative Motor: Negative Neurovascular: Negative Musculoskeletal: Negative Neurological: Negative Psychological: Negative Is Patient Immunocompromised?: No All Other Systems Reviewed And Are Negative: Yes Physical Exam - Summary Physical Exam Summary: Vitals: reviewed General: Well developed, well-nourished obese male patient with no acute respiratory or pain distress. Head and face: Normocephalic and atraumatic, Positive tenderness over the frontal and maxillary sinuses.. Eyes: PERRLA, EOMI x 2. Normal conjunctiva. No eye discharge. ENT: Ears and TM with normal limits. Nose: edematous and erythematous nasal mucosa with with yellowish discharge and erythematous mucosa. Pharynx with erythema, no exudate. Neck: Supple, no JVD, no carotid bruits and no lymphadenopathy. Lungs: clear, no rales, no rhonchi, no wheezes. CVS: RRR, S1 and S2 present no murmurs or gallops appreciated. Abdomen: soft nontender with positive bowel sounds. Extremities: no edema noted. Neuro: WNL. Skin: warm and dry Triage Information Reviewed: Yes Vital Signs: Initial Vital Signs Temp 86.0 F 01/21/18 17:22 Pulse 50 01/21/18 17:22 Resp 18 01/21/18 17:22 BP 143/86 01/21/18 17:22 Pulse Ox 99 01/21/18 17:22 Throat Pain/Nasal Course/Dx - Course Course Of Treatment: 67 y/o male presents to the urgent care c/o sinus congestion, sinus pain and B/L ear plugged since 01/17/2018. Pt reports sinus pain is mild 2/10 and + PND yellowish. He states he has PMHX of A-fib which is triggered by any infection, specially sinusitis. He states last time he was seen here he came with worse sinus infection and referred to the ER due to his A-fib. He went to the ER and was admitted for 1 day, then D/C home w/ ABx treatment for sinusitis and his A-fib resolved w/o any cardioversion. However if he doesn't get ABx sooner then it can lead to tachycardia , A-fib and sharon't get controlled. He has Hx of 35 cardioversions and Cardiac ablation 2X. Pt states he is sweaty since it is very hot outside. He lives in [place] and he is managed there by [employer] DR Zheng. However he has seen [employer] DR Nguyen or DR Karimi here in [place] every year when he comes for the summer. He takes Tykosyn PO for his A-fib and Coumadin PO. He denies fever, SANCHEZ, palpitations, SOB, chest pain, abdominal pain, N/V/D, dizziness. Pt requests ABx for 2 weeks, otherwise symptoms will not resolved completely.Hx obtained. Pt w/ Temp:86F and HR:50 at triage. Re-taken since Pt was sweaty after he dried his forehead temp:96F and HR 97bpm. Pt hemodynamically table w/o any apaprent distress w/ acute bacterial sinusitis on examination. Pt's symptoms disccussed w / DR Alexandre who recommended after reviewing previous EKG since Pt's PMHX of a-fib. EKG ordered: Atrial fibrillation,HR100 bpm, and [address] Alexandre recommended f/u w / [employer] Programmer [employer] Dr Nguyen tomorrow for further management since Pt is on Tykosin PO. Pt w/ 5 days of sinusitis getting worse which can lead to uncontrolled rate.Pt given first dose of Augmentin PO. Pt tolerated well medication. Pt states he feel well. Pt Rx Augmentin PO and advised to start using flonasa Nasal [place], saline drops and Claritin PO to alleviate symptoms. Pt strongly recommended to f/u w/ [employer] Programmer [employer] DR Nguyen or Dr Connelly tomorrow or as soon as possible for further management. Also highly advised if he develops SOB, palpitations or chest pain to go immediately to the ER for further management. Discharge instructions explained to Pt. Advised to Return to the clinic or PCP if sinus symptoms do not improve.Pt's BP is elevated today advised to decrease salt in diet, monitor BP and f/u with PCP for further management.Pt understood and agreed with plan of care. Pt left the clinic hemodynamically stable, A&Ox3 - Differential Dx/Diagnosis Differential Diagnosis/HQI/PQRI: Laryngitis, Sinusitis, Tonsillitis, URI Provider Diagnoses: 1- Acute bacterial sinusitis. 2- Atrial fibrillation. 3- Unconrolled HTN Discharge - Sign-Out/Discharge Documenting (check all that apply): Discharge/Admit/Transfer - D/C home - Discharge Plan Condition: Stable Disposition: HOME Prescriptions: Amoxicillin/Clavulanate TAB* [Augmentin TAB 875*] 875 mg PO BID #27 tab Patient Education Materials: A-fib (Atrial Fibrillation) (ED), Sinusitis (ED), Low-Sodium Diet (ED) Referrals: [facility] [place] [facility] REFERRAL [Outside] - 3 Days Kevin Nguyen MD [Medical Doctor] - 1 Day Additional Instructions: 1- Please increase fluid intake and rest. take full course of antibiotic to avoid resistance 2-Use Flonase you have at home as directed to help drain fluid. Also buy saline drops to clear sinuses 3-Continue taking Claritin PO to alleviates sinus congestion 4-Return to the clinic or PCP if symptoms do not improve for further management and treatment 5- Please f/u w/ [employer] Programmer [employer] DR Nguyen in 1-2 days for further management in your A-fib until you return to [place] to your Statistical Programmer [employer]st Dr Zheng 6-Your BP is elevated today. please decrease salt in your diet, monitor BP and if it continues to be elevated please f/u with your PCP for further management 7- Please go to the ER immediately if you develop chest pain, palpitations or SOB etc for further treatment - Billing Disposition and Condition Condition: STABLE Disposition: Home
[2018-01-21 17:57] VITALS: BP 149/76
[2018-01-21] MEDS ORDERED: Amoxicillin/Clavulanate TAB* 875 MG PO ONE (18:02)
== END 2018-01-21 18:35 | disposition home or self-care (01) ==
LOC: UCEAST 17:11
DX: J01.90 Acute sinusitis, unspecified (principal); B96.89 Other specified bacterial agents as the cause of diseases classified elsewhere; I48.91 Unspecified atrial fibrillation; E11.9 Type 2 diabetes mellitus without complications; I10 Essential (primary) hypertension; E66.9 Obesity, unspecified; Z88.8 Allergy status to other drugs, medicaments and biological substances; Z79.01 Long term (current) use of anticoagulants
CPT/HCPCS: 93005; 99212; A9270-GY; G0463